=== PATIENT | female | born 1975 | race African-American/Black ===

== ENCOUNTER 2021-06-02 06:48 | Emergency (ER) | payer BC ==
[~2021-06-02] VITALS: Ht 170.2 cm; Wt 75.0 kg
[2021-06-02 06:54] VITALS: BP 169/109
[2021-06-02] MEDS ORDERED: AMOX-419 PO (08:00)
[2021-06-02] MEDS ORDERED: rabies vaccine (PCEC)/PF 2.5 unit kit IMVAC ONE (08:00)
== END 2021-06-02 08:29 | disposition home or self-care (01) ==
LOC: ER 06:50
DX: S70.312A Abrasion, left thigh, initial encounter (principal); W54.0XXA Bitten by dog, initial encounter; Y93.89 Activity, other specified; Y92.89 Other specified places as the place of occurrence of the external cause; Y99.9 Unspecified external cause status
CPT/HCPCS: 90471; 90675; 99283

== ENCOUNTER 2021-06-05 06:34 | Emergency (ER) | payer BC ==
[~2021-06-05] VITALS: Ht 170.2 cm; Wt 61.4 kg
[~2021-06-05 06:34] MED LIST: AMOX-419 PO
[2021-06-05 06:37] VITALS: BP 170/108
[2021-06-05] MEDS ORDERED: rabies vaccine (PCEC)/PF 2.5 unit kit IMVAC ONE (07:10)
--- NOTE | 2021-06-05 07:38 | NUR ---
Patient given insert literature for rabies vaccine, Ivont.
[2021-06-05] MEDS ORDERED: rabies immune globulin/PF 150 unit/ml inj IMVAC STA ×2 (08:16→09:04)
== END 2021-06-05 10:20 | disposition home or self-care (01) ==
LOC: ER 06:34
DX: Z23 Encounter for immunization (principal); S71.132D Puncture wound without foreign body, left thigh, subsequent encounter; Z20.3 Contact with and (suspected) exposure to rabies; Z79.2 Long term (current) use of antibiotics; W54.0XXD Bitten by dog, subsequent encounter
CPT/HCPCS: 90376; 90471; 90675; 96372; 99281; 99283

== ENCOUNTER 2021-06-09 06:34 | Emergency (ER) | payer BC ==
[~2021-06-09] VITALS: Ht 170.2 cm; Wt 61.0 kg
[2021-06-09 06:47] VITALS: BP 163/114
[2021-06-09] MEDS ORDERED: rabies vaccine (PCEC)/PF 2.5 unit kit IMVAC ONE (07:10)
== END 2021-06-09 07:29 | disposition home or self-care (01) ==
LOC: ER 06:35
DX: Z23 Encounter for immunization (principal); Z79.2 Long term (current) use of antibiotics; Z20.3 Contact with and (suspected) exposure to rabies
CPT/HCPCS: 90471; 90675; 99281; 99283

== ENCOUNTER 2021-06-16 11:20 | Emergency (ER) | payer BC ==
[~2021-06-16] VITALS: Ht 170.2 cm; Wt 61.4 kg
[2021-06-16] MEDS ORDERED: rabies vaccine (PCEC)/PF 2.5 unit kit IMVAC ONE (11:30)
[2021-06-16 11:58] VITALS: BP 166/110
== END 2021-06-16 12:02 | disposition home or self-care (01) ==
LOC: ER 11:20
DX: Z20.3 Contact with and (suspected) exposure to rabies (principal)
CPT/HCPCS: 90471; 90675; 99281